=== PATIENT | female | born 1970 | race Caucasian/White ===

== ENCOUNTER 2018-01-14 01:43 | Emergency (ER) | payer MEDICAID ==
[2018-01-14 02:58] LABS: ADD MAN DIFF? NO
[2018-01-14 03:02] LABS: BASOPHILS % 0.7 % (0.0-2.0); EOSINOPHILS # 0.1 10^3/ul (0.0-0.5); EOSINOPHILS % 2.5 % (0.0-7.0); HEMATOCRIT 40.4 % (37.0-47.0); HEMOGLOBIN 13.3 g/dl (12.0-16.0); LYMPHOCYTES # 1.5 10^3/ul (0.8-2.9); LYMPHOCYTES % 34.5 % (15.0-51.0); MEAN CORPUSCULAR HGB CONC 32.9 g/dl (32.0-37.0); MEAN CORPUSCULAR VOLUME 91.2 fl (82.0-101.0); MEAN PLATELET VOLUME 12.3 fl (7.4-10.4); MONOCYTE # 0.3 10^3/ul (0.3-0.9); MONOCYTES % 6.7 % (0.0-11.0); NEUTROPHIL # 2.5 10^3/ul (1.6-7.5); NEUTROPHILS % 55.2 % (39.0-77.0); PLATELET COUNT 150 10^3/UL (140-415); RED BLOOD COUNT 4.43 10^6/ul (4.20-5.40); RED CELL DISTRIBUTION WIDTH 12.3 % (11.5-14.5)
[2018-01-14 03:02] LABS: WHITE BLOOD COUNT 4.5 10^3/ul (4.8-10.8)
[2018-01-14] MEDS: morphine 2 MG INJ IV (03:05)
[2018-01-14] MEDS: ONDANSETRON 4 MG INJ IV (03:05)
[2018-01-14] MEDS: SOD CHLORIDE 0.9% 500 ML IV (03:05)
[2018-01-14] MEDS: LABETALOL HCL 20MG INJ IV ×2 (03:05→03:09)
[2018-01-14] MEDS: hydrALAzine 20 MG INJ IV (03:13)
[2018-01-14 03:22] LABS: PROTIME 13.3 Sec (11.9-14.9)
[2018-01-14 03:23] LABS: PARTIAL THROMBOPLASTIN TIME 29.5 Sec (25.0-35.0)
[2018-01-14 03:26] LABS: ANION GAP 14 (8-16); BLOOD UREA NITROGEN 22 mg/dl (7-20); CALCIUM 9.2 mg/dl (8.4-10.2); CARBON DIOXIDE 25 mmol/L (21-31); CHLORIDE 108 mmol/L (97-110); GLUCOSE 135 mg/dl (70-220); POTASSIUM 3.9 mmol/L (3.5-5.1); SODIUM 143 mmol/L (135-144)
[2018-01-14 03:37] LABS: TROPONIN-I < 0.010 ng/ml (0.000-0.120)
[2018-01-14] MEDS ORDERED: hydrALAzine 20 MG INJ IV (05:00)
== END 2018-01-14 05:00 | disposition home or self-care (01) ==
LOC: E/R 01:43
DX: I10 Essential (primary) hypertension (principal); E11.9 Type 2 diabetes mellitus without complications; R11.2 Nausea with vomiting, unspecified
CPT/HCPCS: 36415; 70450; 71045; 80048; 81025; 84484; 85025; 85610; 85730; 93005; 96361; 96374; 96375; 99285-25